=== PATIENT | female | born 1985 | race African-American/Black ===

== ENCOUNTER 2018-01-18 15:53 | Emergency (ER) | payer MEDICAID, OTHER ==
[~2018-01-18] VITALS: Ht 170.2 cm; Wt 120.0 kg
[~2018-01-18 15:53] MED LIST: OSEL75 PO
[2018-01-18 15:59] VITALS: BP 136/72; PULSE 77; RESP 17; TEMP 98.3; O2SAT 99
[2018-01-18 17:07] LABS: BASOPHIL % 0.5 % (0.0-2.0); EOSINOPHIL # 0.1 TH/MM3 (0-0.4); EOSINOPHIL % 1.4 % (0.0-4.0); HEMATOCRIT 35.2 % (35.0-46.0); HEMOGLOBIN 11.3 GM/DL (11.6-15.3); LYMPH % 35.8 % (9.0-44.0); LYMPHOCYTE # 2.6 TH/MM3 (1.0-4.8); MEAN CELL VOLUME 85.2 FL (80.0-100.0); MEAN CORPUSCULAR HEMOGLOBIN 27.3 PG (27.0-34.0); MEAN CORPUSCULAR HGB CONC 32.1 % (32.0-36.0); MEAN PLATELET VOLUME 10.9 FL (7.0-11.0); MONO % 6.8 % (0.0-8.0); MONOCYTE # 0.5 TH/MM3 (0-0.9); NEUT % 55.5 % (16.0-70.0); PLATELET COUNT 219 TH/MM3 (150-450); RED BLOOD COUNT 4.13 MIL/MM3 (4.00-5.30); RED CELL DISTRIBUTION WIDTH 15.2 % (11.6-17.2); WHITE BLOOD COUNT 7.3 TH/MM3 (4.0-11.0)
[2018-01-18 17:24] LABS: ALBUMIN 3.4 GM/DL (3.4-5.0); ALT (GPT) 23 U/L (10-53); AST (GOT) 19 U/L (15-37); BICARBONATE 28.5 MEQ/L (21.0-32.0); BLOOD UREA NITROGEN 8 MG/DL (7-18); CALCIUM 8.8 MG/DL (8.5-10.1); CHLORIDE 106 MEQ/L (98-107); CREATININE 0.91 MG/DL (0.50-1.00); GLOMERULAR FILTRATION RATE 88 ML/MIN (>89); GLUCOSE,RANDOM 85 MG/DL (74-106); SODIUM (NA) 138 MEQ/L (136-145)
[2018-01-18 17:27] LABS: ALKALINE PHOSPHATASE 101 U/L (45-117); TOTAL BILIRUBIN ADULT 0.4 MG/DL (0.2-1.0); TOTAL PROTEIN 8.9 GM/DL (6.4-8.2)
[2018-01-18 18:02] LABS: BACTERIA, URINE RARE /hpf; BILIRUBIN, URINE NEG (NEG); BLOOD, URINE MOD (NEG); GLUCOSE,URINE NEG (NEG); KETONE, URINE NEG (NEG); MUCUS URINE MANY /lpf (OCC); NITRITE,URINE NEG (NEG); SQUAMOUS EPITHELIAL CELL URINE 8 /hpf (0-5); URINE COLOR YELLOW (YELLW/STRAW); URINE LEUKOCYTE ESTERASE NEG (NEG)
[2018-01-19] MEDS ORDERED: TRAZ50TA12 PO (08:52)
[2018-01-19] MEDS ORDERED: FLUO-1 PO (08:52)
== END 2018-01-18 17:25 | disposition left against medical advice (07) ==
LOC: NED 15:53
DX: R51 Headache (principal); Z53.21 Procedure and treatment not carried out due to patient leaving prior to being seen by health care provider
CPT/HCPCS: 80053; 81001; 85025; 99281

== ENCOUNTER 2018-01-19 08:27 | Emergency (ER) | payer MEDICAID ==
[~2018-01-19] VITALS: Ht 170.2 cm; Wt 118.0 kg
[2018-01-19 08:37] VITALS: BP 142/72; PULSE 90; RESP 16; TEMP 98.9; O2SAT 99
[2018-01-19] MEDS ORDERED: FLUO-1 PO (08:52)
[2018-01-19] MEDS ORDERED: TRAZ50TA12 PO (08:52)
--- NOTE | 2018-01-19 09:25 | PD ---
HPI Chief Complaint: Headache Time Seen by Provider: 09:13 Travel History International Travel<30 days: No Contact w/Intl Traveler<30days: No Traveled to known affect area: No History of Present Illness HPI This 32-year-old female is complaining of headache. She has been having a left- sided headache for over a week. She has photophobia with that she says that her hands and feet feel numb at times. She feels like she has been having some memory loss. She does have a history of iron deficiency. He says he just been taking BC powder for the headache does not appear to be positional. PFSH Past Medical History Asthma: Yes Depression: Yes Cancer: No Diabetes: No Diminished Hearing: No Glaucoma: No Genitourinary: Yes (UTI 11/04/09) Headaches: Yes Hepatitis: No Hiatal Hernia: No Hypertension: Yes Respiratory: Yes (asthma) Pancreatitis: Yes Thyroid Disease: No Influenza Vaccination: No ?: Not LMP: 01/14/18 : 1 Para: 2 Miscarriage: 0 : 0 Past Surgical History Section: Yes (April) Cholecystectomy: Yes Gynecologic Surgery: Yes (C SECTION) Oral Surgery: Yes (TONSILLECTOMY) Pacemaker: No Tonsillectomy: Yes Social History Alcohol Use: No Tobacco Use: No Substance Use: No Allergies-Medications (Allergen,Severity, Reaction): Coded Allergies: acetaminophen (Unverified Allergy, Severe, 01/19/18) naproxen (Unverified Allergy, Severe, Nausea/Vomiting, 01/19/18) oxycodone (Unverified Allergy, Severe, 01/19/18) Reported Meds & Prescriptions Reported Meds & Active Scripts Active Reported Trazodone (Trazodone HCl) 50 Mg Tab 50 Mg PO HS Prozac (Fluoxetine HCl) 10 Mg Cap 10 Mg PO DAILY Review of Systems General / Constitutional: No: Fever, Chills Eyes: Positive: Photophobia, No: Diploplia, Blurred Vision HENT: No: Headaches Cardiovascular: No: Chest Pain or Discomfort, Palpitations Respiratory: No: Cough, Shortness of Breath Gastrointestinal: No: Nausea, Vomiting Genitourinary: No: Urgency Neurologic: No: Weakness, Dizziness Endocrine: No: Heat Intolerance, Cold Intolerance Hematologic/Lymphatic: No: Easy Bruising Physical Exam Narrative GENERAL: Well-developed female SKIN: Focused skin assessment warm/dry. HEAD: Atraumatic. Normocephalic. EYES: Pupils equal and round. No scleral icterus. No injection or drainage. ENT: No nasal bleeding or discharge. Mucous membranes pink and moist. NECK: Trachea midline. No JVD. CARDIOVASCULAR: Regular rate and rhythm. No murmur appreciated. RESPIRATORY: No accessory muscle use. Clear to auscultation. Breath sounds equal bilaterally. GASTROINTESTINAL: Abdomen soft, non-tender, nondistended. Hepatic and splenic margins not palpable. MUSCULOSKELETAL: No obvious deformities. No clubbing. No cyanosis. No edema. NEUROLOGICAL: Awake and alert. No obvious cranial nerve deficits. Motor grossly within normal limits. Normal speech. PSYCHIATRIC: Appropriate mood and affect; insight and judgment normal. Data Data Last Documented VS Vital Signs Date Time Temp Pulse Resp B/P (MAP) Pulse Ox O2 Delivery O2 Flow Rate FiO2 01/19/18 11:50 79 18 122/81 (95) 99 Room Air 01/19/18 08:[address] Brain W/O Iv Contrast(Rout) (01/19/18 09:22) Sodium Chlor 0.9% 1000 Ml Inj (Ns 1000 M (01/19/18 09:30) Prochlorperazine Inj (Compazine Inj) (01/19/18 09:30) Diphenhydramine Inj (Benadryl Inj) (01/19/18 09:30) MDM Medical Decision Making Medical Screen Exam Complete: Yes Emergency Medical Condition: Yes Medical Record Reviewed: Yes Differential Diagnosis Differential includes migraine headache, tension headache, space-occupying lesion Narrative Course Patient was concerned about some numbness of her fingers of it is bilateral and not suggestive of intracranial illness she also feels she has had some poor short-term memory. I did order a CT which is read as negative. Patient has received Compazine with improvement. She is stable for discharge Diagnosis Primary Impression: Migraine headache Disposition: 01 DISCHARGE HOME Condition: Stable Enoc Lam MD Jan 19, 2018 09:25
[2018-01-19] MEDS ORDERED: PROCHLORPERAZINE INJ 10 MG/2 ML VIAL IV PUSH ONE (09:30)
[2018-01-19] MEDS ORDERED: diphenhydrAMINE HCL 50 MG/ML VIAL IV PUSH ONE (09:30)
[2018-01-19] MEDS ORDERED: SODIUM CHLOR 0.9% 1000 ML INJ 1,000 ML IV ONE (09:30)
--- NOTE | 2018-01-19 10:53 | RADRPT ---
EXAM DATE/TIME: 01/19/2018 10:22 [facility] COMPARISON: No previous studies available for comparison. INDICATIONS : Cephalgia. RADIATION DOSE: 53.90 CTDIvol (mGy) MEDICAL HISTORY : Hypertension. Pancreatitis. SURGICAL HISTORY : Cholecystectomy. section. ENCOUNTER: Initial ACUITY: 1 week PAIN SCALE: 9/10 LOCATION: cranial TECHNIQUE: Multiple contiguous axial images were obtained of the head. Using automated exposure control and adj ustment of the mA and/or kV according to patient size, radiation dose was kept as low as reasonably a chievable to obtain optimal diagnostic quality images. DICOM format image data is available electro nically for review and comparison. FINDINGS: CEREBRUM: The ventricles are normal. There is ossification along the anterior falx cerebri. No evidence of mid line shift, mass lesion, hemorrhage or acute infarction. No extra-axial fluid collections are seen. POSTERIOR FOSSA: The cerebellum and brainstem are intact. The 4th ventricle is midline. The cerebellopontine angle i s unremarkable. EXTRACRANIAL: The visualized sinuses are clear. SKULL: The calvaria is intact. No evidence of skull fracture. CONCLUSION: No acute intracranial abnormality is identified. Cesar Swan MD on January 19, 2018 at 10:48 Board Certified Radiologist. This report was verified electronically.
[2018-01-19 11:50] VITALS: BP 122/81; PULSE 79; RESP 18; O2SAT 99
== END 2018-01-19 12:39 | disposition home or self-care (01) ==
LOC: PHED 08:27
DX: G43.909 Migraine, unspecified, not intractable, without status migrainosus (principal); I10 Essential (primary) hypertension; J45.909 Unspecified asthma, uncomplicated; F32.9 Major depressive disorder, single episode, unspecified
CPT/HCPCS: 70450; 96361; 96374; 96375; 99284; J0780; J1200; J7030

== ENCOUNTER 2018-03-24 14:38 | Emergency (ER) | payer MEDICAID ==
[~2018-03-24] VITALS: Ht 170.2 cm; Wt 119.0 kg
[~2018-03-24 14:38] MED LIST changes: +FLUO-1 PO; -OSEL75 PO; +TRAZ50TA12 PO
[2018-03-24 14:40] VITALS: BP 155/91; PULSE 95; RESP 18; TEMP 98.2; O2SAT 97
--- NOTE | 2018-03-24 15:05 | PD ---
HPI Chief Complaint: Depression Time Seen by Provider: 14:47 Travel History International Travel<30 days: No Contact w/Intl Traveler<30days: No Traveled to known affect area: No History of Present Illness HPI Patient is a 32-year-old female presenting to the emergency department voluntarily for psychiatric evaluation. Patient reports a history of depression and anxiety. Patient is on Prozac and trazodone. Initially she reports that the Prozac worked for her and she had days where she felt good. She states she does not feel that way anymore. She did not feel suicidal today but she is thought of it in the past. She reports that she has a short temper with her kids, decreased appetite, headaches, decreased concentration and forgetfulness. Patient is followed by [facility]. She denies any previous suicide attempt. Patient states that her current therapy is not working for her so she came to emergency department. PFSH Past Medical History Asthma: Yes Anxiety: Yes Depression: Yes Genitourinary: Yes (UTI 11/04/09) Headaches: Yes Hepatitis: No Hiatal Hernia: No Hypertension: Yes Respiratory: Yes (asthma) Pancreatitis: Yes Thyroid Disease: No ?: Not LMP: FEBRUARY 2018 : 1 Para: 2 Miscarriage: 0 : 0 Past Surgical History Section: Yes (April) Cholecystectomy: Yes Gynecologic Surgery: Yes (C SECTION) Oral Surgery: Yes (TONSILLECTOMY) Pacemaker: No Tonsillectomy: Yes Social History Alcohol Use: No Tobacco Use: No Substance Use: No Allergies-Medications (Allergen,Severity, Reaction): Coded Allergies: acetaminophen (Unverified Allergy, Severe, 01/19/18) naproxen (Unverified Allergy, Severe, Nausea/Vomiting, 01/19/18) oxycodone (Unverified Allergy, Severe, 01/19/18) Reported Meds & Prescriptions Reported Meds & Active Scripts Active Reported Trazodone (Trazodone HCl) 50 Mg Tab 50 Mg PO HS Prozac (Fluoxetine HCl) 10 Mg Cap 10 Mg PO DAILY Review of Systems Except as stated in HPI: all other systems reviewed are Neg Neurologic: Positive: Headache Psychiatric: Positive: Anxiety, Depression Physical Exam Narrative GENERAL: Obese, well-developed, alert female. In no acute distress SKIN: Warm and dry. HEAD: Atraumatic. Normocephalic. EYES: Pupils equal and round. No scleral icterus. No injection or drainage. ENT: No nasal bleeding or discharge. Mucous membranes pink and moist. NECK: Trachea midline. No JVD. CARDIOVASCULAR: Regular rate and rhythm. RESPIRATORY: No accessory muscle use. Clear to auscultation. Breath sounds equal bilaterally. GASTROINTESTINAL: Abdomen soft, non-tender, nondistended. Hepatic and splenic margins not palpable. MUSCULOSKELETAL: Extremities without clubbing, cyanosis, or edema. No obvious deformities. NEUROLOGICAL: Awake and alert. No obvious cranial nerve deficits. Motor grossly within normal limits. Five out of 5 muscle strength in the arms and legs. Normal speech. PSYCHIATRIC: Depressed mood and affect; insight and judgment normal. Data Data Last Documented VS Vital Signs Date Time Temp Pulse Resp B/P (MAP) Pulse Ox O2 Delivery O2 Flow Rate FiO2 03/24/18 18:23 98.1 85 16 128/91 (103) 100 Room Air Orders Orders Complete Blood Count With Diff (03/24/18 14:54) Comprehensive Metabolic Panel (03/24/18 14:54) Thyroid Stimulating Hormone (03/24/18 14:54) Urinalysis - C+S If Indicated (03/24/18 14:54) Psych Screen (03/24/18 14:54) Drug Screen, Random Urine (03/24/18 14:54) Diet Regular Basic (03/24/18 Dinner) Ed Discharge Order (03/24/18 18:59) Mandatory Outpatient Referral (03/24/18 18:59) Labs Laboratory Tests Test 03/24/18 15:50 White Blood Count 6.8 TH/MM3 Red Blood Count 4.06 MIL/MM3 Hemoglobin 11.2 GM/DL Hematocrit 34.3 % Mean Corpuscular Volume 84.6 FL Mean Corpuscular Hemoglobin 27.6 PG Mean Corpuscular Hemoglobin Concent 32.6 % Red Cell Distribution Width 14.9 % Platelet Count 187 TH/MM3 Mean Platelet Volume 10.8 FL Neutrophils (%) (Auto) 66.6 % Lymphocytes (%) (Auto) 26.0 % Monocytes (%) (Auto) 6.1 % Eosinophils (%) (Auto) 0.9 % Basophils (%) (Auto) 0.4 % Neutrophils # (Auto) 4.5 TH/MM3 Lymphocytes # (Auto) 1.8 TH/MM3 Monocytes # (Auto) 0.4 TH/MM3 Eosinophils # (Auto) 0.1 TH/MM3 Basophils # (Auto) 0.0 TH/MM3 CBC Comment DIFF FINAL Differential Comment Urine Color YELLOW Urine Turbidity CLOUDY Urine pH 5.0 Urine Specific [place] 1.030 Urine Protein 30 mg/dL Urine Glucose (UA) NEG mg/dL Urine Ketones NEG mg/dL Urine Occult Blood NEG Urine Nitrite NEG Urine Bilirubin NEG Urine Urobilinogen 2.0 mg/dL Urine Leukocyte Esterase TRACE Urine WBC 1 /hpf Urine Squamous Epithelial Cells 8 /hpf Urine Mucus MANY /lpf Microscopic Urinalysis Comment CULT NOT INDICATED Blood Urea Nitrogen 8 MG/DL Creatinine 0.84 MG/DL Random Glucose 80 MG/DL Total Protein 8.3 GM/DL Albumin 3.2 GM/DL Calcium Level 8.6 MG/DL Alkaline Phosphatase 95 U/L Aspartate Amino Transf (AST/SGOT) 14 U/L Alanine Aminotransferase (ALT/SGPT) 18 U/L Total Bilirubin 0.4 MG/DL Sodium Level 140 MEQ/L Potassium Level 3.5 MEQ/L Chloride Level 107 MEQ/L Carbon Dioxide Level 23.8 MEQ/L Anion Gap 9 MEQ/L Estimat Glomerular Filtration Rate 96 ML/MIN Thyroid Stimulating Hormone 3rd Gen 1.020 uIU/ML Urine Opiates Screen NEG Urine Barbiturates Screen NEG Urine Amphetamines Screen NEG Urine Benzodiazepines Screen NEG Urine Cocaine Screen NEG Urine Cannabinoids Screen NEG [facility] Medical Decision Making Medical Screen Exam Complete: Yes Emergency Medical Condition: Yes Interpretation(s) Laboratory Tests Test 03/24/18 15:50 White Blood Count 6.8 TH/MM3 Red Blood Count 4.06 MIL/MM3 Hemoglobin 11.2 GM/DL Hematocrit 34.3 % Mean Corpuscular Volume 84.6 FL Mean Corpuscular Hemoglobin 27.6 PG Mean Corpuscular Hemoglobin Concent 32.6 % Red Cell Distribution Width 14.9 % Platelet Count 187 TH/MM3 Mean Platelet Volume 10.8 FL Neutrophils (%) (Auto) 66.6 % Lymphocytes (%) (Auto) 26.0 % Monocytes (%) (Auto) 6.1 % Eosinophils (%) (Auto) 0.9 % Basophils (%) (Auto) 0.4 % Neutrophils # (Auto) 4.5 TH/MM3 Lymphocytes # (Auto) 1.8 TH/MM3 Monocytes # (Auto) 0.4 TH/MM3 Eosinophils # (Auto) 0.1 TH/MM3 Basophils # (Auto) 0.0 TH/MM3 CBC Comment DIFF FINAL Differential Comment Urine Color YELLOW Urine Turbidity CLOUDY Urine pH 5.0 Urine Specific [place] 1.030 Urine Protein 30 mg/dL Urine Glucose (UA) NEG mg/dL Urine Ketones NEG mg/dL Urine Occult Blood NEG Urine Nitrite NEG Urine Bilirubin NEG Urine Urobilinogen 2.0 mg/dL Urine Leukocyte Esterase TRACE Urine WBC 1 /hpf Urine Squamous Epithelial Cells 8 /hpf Urine Mucus MANY /lpf Microscopic Urinalysis Comment CULT NOT INDICATED Blood Urea Nitrogen 8 MG/DL Creatinine 0.84 MG/DL Random Glucose 80 MG/DL Total Protein 8.3 GM/DL Albumin 3.2 GM/DL Calcium Level 8.6 MG/DL Alkaline Phosphatase 95 U/L Aspartate Amino Transf (AST/SGOT) 14 U/L Alanine Aminotransferase (ALT/SGPT) 18 U/L Total Bilirubin 0.4 MG/DL Sodium Level 140 MEQ/L Potassium Level 3.5 MEQ/L Chloride Level 107 MEQ/L Carbon Dioxide Level 23.8 MEQ/L Anion Gap 9 MEQ/L Estimat Glomerular Filtration Rate 96 ML/MIN Thyroid Stimulating Hormone 3rd Gen 1.020 uIU/ML Vital Signs Date Time Temp Pulse Resp B/P (MAP) Pulse Ox O2 Delivery O2 Flow Rate FiO2 03/24/18 14:40 98.2 95 18 155/91 (112) 97 Differential Diagnosis Depression versus mood disorder versus suicidal ideations versus metabolic abnormality versus other Narrative Course Patient is a 32-year-old female presenting for evaluation of depression, anxiety and occasional suicidal ideations, she denies suicidality at this time. Patient has a history of depression and is not controlled on her current medications. Mental health screening discussed with the patient. Psychiatric screen ordered. Labs reviewed, no acute abnormalities identified. Patient is here on a voluntary basis. She is agreeable to stay. Patient is medically cleared at this time. Patient presented on a voluntary basis, she stated that she wanted to go home to her children. She contracted for safety. Patient states that she is the only thing that her twin 8-year-old sons have. Patient states that her primary doctor would not increase her dose of Prozac until her memory issues were addressed by a neurologist. They were having issues finding a neurologist with her insurance. On that basis a mandatory referral was made for patient to hopefully facilitate that process. Patient was strongly advised to return to emergency department immediately for any new or worsening symptoms. 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 Diagnosis Primary Impression: Depression Qualified Codes: F32.9 - Major depressive disorder, single episode, unspecified Referrals: Neurologist Primary Care Physician Psychiatrist Patient Instructions: Depression (ED), General Instructions Additional Instructions: Follow-up with a neurologist, a mandatory referral was made for you Follow-up with your primary doctor Follow-up with your psychiatrist Return to the emergency department immediately for any new or worsening symptoms as discussed Med/Other Pt SpecificInfo: No Change to Meds Disposition: 01 DISCHARGE HOME Condition: Stable Mary Harris Mar 24, 2018 15:05
[2018-03-24 16:15] LABS: AUTOMATED NEUTROPHIL # 4.5 TH/MM3 (1.8-7.7); BASOPHIL % 0.4 % (0.0-2.0); EOSINOPHIL # 0.1 TH/MM3 (0-0.4); EOSINOPHIL % 0.9 % (0.0-4.0); HEMATOCRIT 34.3 % (35.0-46.0); HEMOGLOBIN 11.2 GM/DL (11.6-15.3); LYMPHOCYTE # 1.8 TH/MM3 (1.0-4.8); MEAN CELL VOLUME 84.6 FL (80.0-100.0); MEAN CORPUSCULAR HEMOGLOBIN 27.6 PG (27.0-34.0); MEAN CORPUSCULAR HGB CONC 32.6 % (32.0-36.0); MEAN PLATELET VOLUME 10.8 FL (7.0-11.0); MONO % 6.1 % (0.0-8.0); MONOCYTE # 0.4 TH/MM3 (0-0.9); NEUT % 66.6 % (16.0-70.0); PLATELET COUNT 187 TH/MM3 (150-450); RED BLOOD COUNT 4.06 MIL/MM3 (4.00-5.30); RED CELL DISTRIBUTION WIDTH 14.9 % (11.6-17.2); WHITE BLOOD COUNT 6.8 TH/MM3 (4.0-11.0)
[2018-03-24 16:27] LABS: BILIRUBIN, URINE NEG (NEG); BLOOD, URINE NEG (NEG); GLUCOSE,URINE NEG (NEG); KETONE, URINE NEG (NEG); MUCUS URINE MANY /lpf (OCC); NITRITE,URINE NEG (NEG); SQUAMOUS EPITHELIAL CELL URINE 8 /hpf (0-5); URINE COLOR YELLOW (YELLW/STRAW); URINE LEUKOCYTE ESTERASE TRACE (NEG)
[2018-03-24 16:32] LABS: ALBUMIN 3.2 GM/DL (3.4-5.0); AST (GOT) 14 U/L (15-37); BICARBONATE 23.8 MEQ/L (21.0-32.0); BLOOD UREA NITROGEN 8 MG/DL (7-18); CALCIUM 8.6 MG/DL (8.5-10.1); CHLORIDE 107 MEQ/L (98-107); CREATININE 0.84 MG/DL (0.50-1.00); GLOMERULAR FILTRATION RATE 96 ML/MIN (>89); GLUCOSE,RANDOM 80 MG/DL (74-106); SODIUM (NA) 140 MEQ/L (136-145)
[2018-03-24 16:42] LABS: ALKALINE PHOSPHATASE 95 U/L (45-117); ALT (GPT) 18 U/L (10-53); TOTAL BILIRUBIN ADULT 0.4 MG/DL (0.2-1.0); TOTAL PROTEIN 8.3 GM/DL (6.4-8.2)
[2018-03-24 17:26] VITALS: BP 149/76
[2018-03-24 18:23] VITALS: BP 128/91; PULSE 85; RESP 16; TEMP 98.1; O2SAT 100
[2018-03-24 19:22] VITALS: BP 113/78; TEMP 98.4
== END 2018-03-24 19:44 | disposition home or self-care (01) ==
LOC: NEPD 14:38 → NEPJ 19:44
DX: F32.9 Major depressive disorder, single episode, unspecified (principal); F41.9 Anxiety disorder, unspecified; R51 Headache; Z79.899 Other long term (current) drug therapy
CPT/HCPCS: 80053; 80307; 81001; 84443; 85025; 99283